=== PATIENT | female | born 1995 ===

== ENCOUNTER 2016-11-08 17:16 | Emergency (ER) | payer OTHER ==
--- NOTE | 2016-11-08 17:42 | UC ---
Complaint Female HPI - History Of Current Complaint Chief Complaint: [facility] Stated Complaint: URINARY Time Seen by Provider: 11/08/16 17:28 Hx Obtained From: Patient Hx Last Menstrual Period: 11/05/16 ?: No Onset/Duration: Sudden Onset, Lasting Days - 2, Worse Since - today Timing: Constant Severity Initially: Mild Severity Currently: Moderate Character: Burning Aggravating Factor(s): Urination Alleviating Factor(s): Nothing Associated Signs And Symptoms: Negative: Fever, Back Pain, Vaginal Discharge - Risk Factors Ectopic Risk Factor: Negative Ovarian Torsion Risk Factor: Reproductive Age - Allergies/Home Medications Allergies/Adverse Reactions: Allergies Allergy/AdvReac Type Severity Reaction Status Date / Time No Known Allergies Allergy Verified 11/08/16 17:34 Home Medications: Home Medications Citalopram Hydrobromide [Celexa] 30 mg PO DAILY 11/08/16 [History Confirmed 05/18] Zolpidem Tartrate [Ambien] 5 mg PO DAILY 11/08/16 [History Confirmed 11/08/16] PMH/Surg Hx/FS Hx/Imm Hx Previously Healthy: Yes Endocrine History Of: Denies: Diabetes Cardiovascular History Of: Denies: Hypertension Respiratory History Of: Denies: Asthma - Surgical History Surgical History: None - Family History Known Family History: Positive: Cardiac Disease, Hypertension, Diabetes - Social History Occupation: Unemployed Lives: With Family Alcohol Use: None Substance Use Type: None Smoking Status (MU): Never Smoked Tobacco Have You Smoked in the Last Year: No Review of Systems Genitourinary: Dysuria, Frequency, Urgency All Other Systems Reviewed And Are Negative: Yes Physical Exam Triage Information Reviewed: Yes Appearance: Well-Appearing, No Pain Distress, Well-Nourished Vital Signs: Initial Vital Signs Temp 98.9 F 11/08/16 17:30 Pulse 86 11/08/16 17:30 Resp 16 11/08/16 17:30 BP 100/60 11/08/16 17:30 Pulse Ox 99 11/08/16 17:30 Vital Signs Reviewed: Yes Eyes: Positive: Conjunctiva Clear Neck exam: Normal Respiratory Exam: Normal Cardiovascular Exam: Normal Abdomen Description: Positive: No Organomegaly. Negative: Nontender - suprapubic, CVA Tenderness (R), CVA Tenderness (L) Musculoskeletal Exam: Normal Neurological Exam: Normal Psychological Exam: Normal Skin Exam: Normal Complaint Female Dx - Differential Dx/Diagnosis Differential Diagnosis/HQI/PQRI: Appendicitis, Ureteral Stone, Urinary Tract Infection Provider Diagnoses: Acute cystitis Discharge - Discharge Plan Condition: Stable Disposition: HOME Prescriptions: Phenazopyridine HCl [Pyridium] 200 mg PO TID PRN #6 tab PRN Reason: Urinary pain Sulfamethox/Trimethoprim DS* [Bactrim DS 800/160 TAB*] 1 tab PO BID #10 tab
[2016-11-08] MEDS ORDERED: Sulfamethox/Trimethoprim DS 800/160* TAB PO ONE (17:48)
[2016-11-08] MEDS ORDERED: Phenazopyridine TAB* 100 MG PO ONE (17:48)
[2016-11-08] MEDS ORDERED: Sulfamethox/Trimethoprim DS 800/160* TAB ONE (18:15)
== END 2016-11-08 18:20 | disposition home or self-care (01) ==
LOC: UCCORT 17:16
DX: N30.00 Acute cystitis without hematuria (principal)
CPT/HCPCS: 87086; 99203; A9270-GY; G0463